=== PATIENT | male | born 1990 | race Caucasian/White ===

== ENCOUNTER 2024-05-14 13:19 | Emergency (ER) | payer MEDICAID ==
[~2024-05-14] VITALS: Ht 175.3 cm; Wt 82.0 kg
[2024-05-14 13:47] VITALS: TEMP 36.9; O2SAT 98
[2024-05-14 16:00] VITALS: BP 126/79; PULSE 80; RESP 20; O2SAT 97
== END 2024-05-14 16:01 | disposition home or self-care (01) ==
LOC: ER 13:19
DX: S62.396A Other fracture of fifth metacarpal bone, right hand, initial encounter for closed fracture (principal); W22.8XXA Striking against or struck by other objects, initial encounter; Y93.89 Activity, other specified; Y92.89 Other specified places as the place of occurrence of the external cause; Y99.8 Other external cause status
CPT/HCPCS: 29125; 73130; 99283